=== PATIENT | female | born 1955 | race Caucasian/White ===

== ENCOUNTER 2024-05-15 22:47 | Emergency (ER) | payer MEDICARE, OTHER ==
[~2024-05-15] VITALS: Ht 160 cm; Wt 68.2 kg
[2024-05-16 01:51] LABS: COLLECTION METHOD CLEAN CATCH
[2024-05-16 01:55] LABS: URINE APPEARANCE CLEAR (CLEAR/HAZY); URINE BLOOD 2+ (NEGATIVE); URINE COLOR YELLOW (YELLOW); URINE GLUCOSE NEGATIVE (NEGATIVE); URINE KETONE NEGATIVE (NEGATIVE); URINE NITRATE NEGATIVE (NEGATIVE); URINE PROTEIN(semi-quant) TRACE (NEGATIVE); URINE UROBILINOGEN 0.2 E.U/dL (0.2-1.0)
[2024-05-16] MEDS ORDERED: Ibuprofen 600 MG TAB PO ONE (02:00)
[2024-05-16] MEDS ORDERED: Cefuroxime 250 MG TAB PO ONE (02:00)
[2024-05-16] MEDS ORDERED: [UNRECOGNIZED DRUG - OTHER] PO ONE (02:00)
[2024-05-16] MEDS ORDERED: CEFTIN500 MG PO (02:04)
[2024-05-16] MEDS ORDERED: [UNRECOGNIZED DRUG - OTHER] PO ONE (02:15)
[2024-05-16] MEDS ORDERED: PHENAZOPYRIDINE 95 MG PO ONE (02:15)
[2024-05-16 02:20] VITALS: BP 130/70; PULSE 78; TEMP 98.6
== END 2024-05-16 02:32 | disposition home or self-care (01) ==
LOC: COL.ER 22:47
PROVIDERS: Physician Assistant
DX: N39.0 Urinary tract infection, site not specified (principal); Z88.1 Allergy status to other antibiotic agents